=== PATIENT | female | born 1995 | race Caucasian/White ===

== ENCOUNTER 2020-09-03 10:04 | Emergency (ER) | payer OTHER ==
[2020-09-03 11:46] LABS: RED BLOOD COUNT 5.63 M/UL (4.00-5.10); WHITE BLOOD COUNT 10.6 K/UL (4.5-11.0)
[2020-09-03 12:09] LABS: BUN/CREATININE RATIO 18 (0-10)
[2020-09-03] MEDS ORDERED: BENTYL 10MG CAP10 MG PO (14:59)
[2020-09-03] MEDS ORDERED: ZOFRAN ODT 4 MG4 MG PO (14:59)
== END 2020-09-03 15:40 | disposition home or self-care (01) ==
LOC: ER1 10:04
PROVIDERS: Family Medicine
DX: F11.13 Opioid abuse with withdrawal (principal); Z86.19 Personal history of other infectious and parasitic diseases; Z20.822 Contact with and (suspected) exposure to COVID-19
CPT/HCPCS: 80053; 82550; 82553; 83690; 83874; 84484; 85025; 87081; 87880; 93005; 96374; 96375; 99284; J1885; J2550; U0002